=== PATIENT | female | born 1985 | race African-American/Black ===

== ENCOUNTER 2019-05-20 02:53 | Emergency (ER) | payer SELFPAY ==
[~2019-05-20] VITALS: Ht 162.6 cm; Wt 74.8 kg
--- NOTE | 2019-05-20 03:05 | NUR ---
Patient ran into the department with stable gait when called from a slouching position in the waiting room and having the inability to ambulate. A/Ox4. Patient came for c/o right flank pain x4 hours with n/v no diarrhea. Respiratory even and unlabored, no cough no sob. No cardiovascular distress noted, all pulses palpable. Patient in bed at lowest position, sr upx2, call light within reach. Fall precautions implemented per protocol. Accompanied by friend.
[2019-05-20] MEDS ORDERED: KETOROLAC TROMETHAMINE 60 MG INJ IM ONE ×2 (03:15→03:41)
[2019-05-20 03:35] LABS: *BILIRUBIN,URIN NEGATIVE (NEGATIVE); *BLOOD, URINE 3+ (NEGATIVE); *KETONES,URINE 1+ (NEGATIVE); LEUKOCYTE ESTERASE ,URINE TRACE (NEGATIVE); NITRITE, URINE NEGATIVE (NEGATIVE); UGLUCOSE NEGATIVE (NEGATIVE)
[2019-05-20 03:36] LABS: *CLARITY,URINE CLOUDY (CLEAR); *COLOR,URINE AMBER (YELLOW)
[2019-05-20 03:41] LABS: BACTERIA,URINE MODERATE /HPF (NONE SEEN); RBC,URINE 80-100 /HPF (0-3)
[2019-05-20] MEDS ORDERED: HYDROCODONE/APAP 5-325MG TABLET ONE (03:41)
[2019-05-20] MEDS ORDERED: ONDANSETRON ODT 4 MG TAB.RAPDIS ONE (03:41)
[2019-05-20 03:42] LABS: *URINE HCG, QUAL NEGATIVE (NEGATIVE); SQUAMOUS EPITHELIAL CELL,UR MODERATE /HPF (NONE SEEN)
--- NOTE | 2019-05-20 03:42 | NUR ---
Prior to entering patient care room, patient appeared asleep without displaying any acute signs of distress or discomfort.
[2019-05-20] MEDS ORDERED: ONDANSETRON ODT 4 MG TAB.RAPDIS SL ONE (03:45)
[2019-05-20] MEDS ORDERED: HYDROCODONE/APAP 5-325MG TABLET PO ONE (03:45)
--- NOTE | 2019-05-20 05:25 | NUR ---
Patient discharged to home in stable conditon. Written and verbal after care instructions given. Patient verbalizes understanding of instructions. Patient ambulated with stable gait. Friend stated that she will be driving her home.
[2019-05-20 05:26] VITALS: BP 112/70
== END 2019-05-20 05:26 | disposition home or self-care (01) ==
LOC: ER 02:57
DX: N20.0 Calculus of kidney (principal)
CPT/HCPCS: 81000; 81001; 84703; 87086; 96372; 99283; J1885; A4663; Q0162